=== PATIENT | male | born 1955 | race Caucasian/White ===

== ENCOUNTER 2020-07-31 12:44 | Inpatient (IN) ==
--- NOTE | 2020-07-13 15:35 | PAT Medication Instructions ---
Medication Instructions Date of Service July 13, 2020 Home Medications ibuprofen 800 mg PO Q6H PRN Cruz Multivitamin For Men 1 tab PO QPM ASK your surgeon for instructions ibuprofen 800 mg PO Q6H PRN Take evening before surgery Cruz Multivitamin For Men 1 tab PO QPM Other Notes If you have any questions please call us at [phone] or [phone] or [phone] or [phone]
--- NOTE | 2020-07-16 14:29 | Anesthesiology Consultation ---
Date of Service July 16, 2020 Assessment & Plan (1) Encounter for pre-operative examination: COVID screening: Per assessment on 07/16: Travel screen negative, no known COVID- 19 positive contacts or current COVID-19 related symptoms. Surgeon arranging preop COVID testing (scheduled 07/24; [facility]). Awaiting results. Chart Review Chart Review: Acceptable Risk for Surgery and Patient seen in Pre Admission Testing Teaching & Discussion Pre-Anesthesia Teaching/Discussion Notes: Instructed NPO after midnight before surgery,except medications with 15 cc of water. Medication instructions provided according to the PAT guidelines. History Surgery Operation Date: 07/31/20 10:25 Proposed Procedures p L2-S1 Decompression Fusion *Spinal Cord Monitoring* - Juan Jose Huerta DO Height/Weight Height: 5 ft 11 in Weight: 88.2 kg Allergies Allergy/AdvReac Type Severity Reaction Status Date / Time No Known Allergies Allergy Verified 07/09/20 13:15 Medications Home Medications Medication Instructions Recorded Confirmed Last Taken ibuprofen 800 mg PO Q6H PRN 07/09/20 07/09/20 Unknown [id number] 1 tab PO QPM 07/09/20 07/09/20 Unknown [Cruz Multivitamin For Men] Past Medical History Medical History Chronic back pain + B/L LE radiculopathy GERD (gastroesophageal reflux disease) occasional Exercise / Class Metabolic Activity II 4-5 Yardwork/Stairs/Walk up hill (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 No witnessed apnea events. Patient denies chest pain, shortness of breath, dyspnea on exertion, fever, chills, cough, wheezing, palpitations. Physical Exam Vital Signs VITALS BP 162/92 (pt anxious, he will monitor at home and let PCP know if persistently elevated) P 67 TEMP 98.4 SP02 98%RA RESP 16 PHYSICAL Full cervical extension range of motion. Full TMJ range of motion. TMD 3 finger breaths Mallampati Score 3 Dentition: several missing teeth (including upper right side), poor dentition Lungs: clear throughout to auscultation Cardiac: regular rate and rhythm, no murmurs noted Spine: normal Carotid arteries: negative bruit Extremities: no edema Large moustache Testing Laboratory Results 07/16/20 14:47 07/16/20 14:47 PT 10.3 Seconds (9.0-12.0) 07/16/20 14:47 INR 1.0 (0.9-1.1) 07/16/20 14:47 APTT 26.7 Seconds (21.0-31.0) 07/16/20 14:47 Urine Color Yellow 07/16/20 14:47 Urine Appearance Clear (Clear) 07/16/20 14:47 Urine pH 7.0 (4.5-7.5) 07/16/20 14:47 Ur Specific [place] 1.010 (1.000-1.030) 07/16/20 14:47 Urine Protein Negative (Negative) 07/16/20 14:47 Urine Glucose (UA) Negative (Negative) 07/16/20 14:47 Urine Ketones Negative (Negative) 07/16/20 14:47 Urine Nitrite Negative (Negative) 07/16/20 14:47 Ur Leukocyte Esterase Negative (Negative) 07/16/20 14:47 Blood Type A Positive 07/16/20 14:47 Antibody Screen NEGATIVE 07/16/20 14:47 Electrocardiogram Date: 07/16/20 Findings: + NSR @ (64) Chest X-Ray Date: 07/16/20 FINDINGS: Cardiac mediastinal and hilar silhouettes are within normal limits. Thoracic aortic tortuosity. Small hiatal hernia. No pneumothorax, pleural effusion, airspace consolidation or overt pulmonary edema. The bones of the chest appear grossly intact. Spondylitic spurring of the spine. IMPRESSION: No acute process.
--- NOTE | 2020-07-16 15:28 | XRay Report ---
XR chest Pre-admission PA/Lat HISTORY: 65 years-old Male pat chronic back pain COMPARISON: None TECHNIQUE: PA and lateral views of the chest FINDINGS: Cardiac mediastinal and hilar silhouettes are within normal limits. Thoracic aortic tortuosity. Small hiatal hernia. No pneumothorax, pleural effusion, airspace consolidation or overt pulmonary edema. T he bones of the chest appear grossly intact. Spondylitic spurring of the spine. IMPRESSION: No acute process. ACT 112: Negative or not required by law. The above report was generated using voice recognition software. It may contain grammatical, syntax o r spelling errors. Electronically signed by: Preet Tellez M.D. 07/16/2020 3:27 PM
[2020-07-16 15:49] LABS: Basophils # (auto) 0.03 K/uL (0-0.2); Basophils % (auto) 0.5 %; Eosinophils # (auto) 0.07 K/uL (0-0.5); Eosinophils % (auto) 1.2 %; Hemoglobin 14.1 g/dL (14.0-18.0); Lymphocytes # (auto) 1.43 K/uL (1.2-3.4); Lymphocytes % (auto) 24.7 %; Mean Corpuscular Hemoglobin 32.2 pg (25-34); Mean Corpuscular Hgb Conc 35.3 g/dL (32-36); Mean Corpuscular Volume 91.3 fL (80-100); Mean Platelet Volume 9.7 fL (7.4-10.4); Monocytes # (auto) 0.67 K/uL (0.11-0.59); Monocytes % (auto) 11.6 %; Platelet Count 262 K/uL (130-400); RDW Coefficient of Variation 13.2 % (11.5-14.5); RDW Standard Deviation 44.1 fL (36.4-46.3); Red Blood Count 4.38 M/uL (4.7-6.1)
[2020-07-16 15:53] LABS: Appearance Urine Clear (Clear); Bilirubin Urine Negative (Negative); Blood Urine Negative (Negative); Color Urine Yellow; Glucose Urine UA Negative (Negative); Ketones Urine Negative (Negative); Leukocyte Esterase Urine Negative (Negative); Nitrite Urine Negative (Negative); Protein Urine Negative (Negative); Urobilinogen Urine Negative (Negative)
[2020-07-16 16:02] LABS: Partial Thromboplastin Time 26.7 Seconds (21.0-31.0); Prothrombin Time 10.3 Seconds (9.0-12.0)
[2020-07-16 16:13] LABS: BUN Creatinine Ratio 17.7 (10-20); Calcium 8.4 mg/dl (8.5-10.1); Creatinine Clr Calc Pharmacy 94.4 ml/min; Est GFR (African American) 106.8; Est GFR (Non-African American) 92.1; Potassium 3.9 mmol/L (3.5-5.1)
--- NOTE | 2020-07-17 06:49 | Electrocardiogram Report ---
Test Reason : Blood Pressure : / mmHG Vent. Rate : 064 BPM Atrial Rate : 064 BPM P-R Int : 188 ms QRS Dur : 090 ms QT Int : 410 ms P-R-T Axes : 072 063 063 degrees QTc Int : 422 ms Normal sinus rhythm Normal ECG No previous ECGs available Confirmed by Isaac Castrejon ([id number]) on 07/17/2020 6:49:19 AM Referred By: Juan Jose Huerta Confirmed By:Isaac Castrejon
[~2020-07-31 12:44] MED LIST: ACETAMINOPHEN 500 MG TAB PO SCH; CeleBREX 200 MG CAP PO SCH; DEXAMETHASONE SOD INJ 4 MG/ML VIAL ONE; GABAPENTIN 300 MG CAP PO SCH; GLYCOPYRROLATE 0.2 MG/ML VIAL ONE; LIDOCAINE 2% 2 ML VIAL/AMP(20MG/ML) INFIL ONE; LR 15ML/HR IV SCH; MIDAZOLAM HCL 1 MG/ML 2ML VIAL ONE; NEOSTIGMINE METHYLSULFATE 1 MG/ML 10ML VIAL ONE; ONDANSETRON INJ 2 MG/ML 2 ML VIAL ONE; PROPOFOL IV EMULSION 10 MG/ML 20 ML VIAL IV ONE; ceFAZolin 2000MG 2,000 MG/15 ML SYR IV SCH; fentaNYL citrate 100 MCG/2 ML VIAL ONE
[2020-07-31] MEDS ORDERED: BUPIVACAINE/EPINEPHRINE 0.5% MPF 1:200,000 30 ML VIAL ONE ×2 (13:01→14:37)
--- NOTE | 2020-07-31 14:49 | History & Physical Bridge Note ---
Date of Service July 31, 2020 History & Physical Bridge Note I have examined the patient, reviewed the History & Physical and in the interval since the performance of the History & Physical I have noted the following changes of clinical significance: no changes noted L2-S1 decompression fusion
[2020-07-31] MEDS ORDERED: ONDANSETRON INJ 2 MG/ML 2 ML VIAL IV PRN ×2 (14:59→19:47)
[2020-07-31] MEDS ORDERED: PROMETHAZINE HCL 6.25 MG in SODIUM CHLORIDE 0.9% 50 ML IV PRN (14:59)
[2020-07-31] MEDS ORDERED: HYDROmorphone INJ 2 MG/ML SYR/VIAL IV PRN (14:59)
[2020-07-31] MEDS ORDERED: ATROPINE SULFATE 0.1 MG/ML 10ML SYR IV PRN (14:59)
[2020-07-31] MEDS ORDERED: ePHEDrine sulfate 50 MG/ML AMP IV PRN (14:59)
[2020-07-31] MEDS ORDERED: ROCURONIUM BROMIDE 10 MG/ML 5 ML VIAL IV ONE ×3 (15:47→15:55)
[2020-07-31] MEDS ORDERED: ePHEDrine sulfate 50 MG/ML SYR ONE (16:13)
[2020-07-31] MEDS ORDERED: PHENYLEPHRINE 100MCG/ML 5ML SYR ONE (16:13)
[2020-07-31] MEDS ORDERED: ALBUMIN HUMAN 5% 12.5 GM/250 ML VIAL IV ONE (16:14)
[2020-07-31] MEDS ORDERED: PHENYLEPHRINE HCL 10 MG/ML VIAL ONE (16:45)
[2020-07-31] MEDS ORDERED: FLOSEAL HEMOSTATIC MATRIX 10ML TOP ONE (17:28)
--- NOTE | 2020-07-31 18:28 | Operative Report ---
Post Operative Report Pre & Post Diagnosis Operation Date: 07/31/20 14:25 Pre-Op Diagnosis: Spinal Stenosis, Lumbar Region with Neurogenic Claudication L2-S1 Post-Op Diagnosis: Spinal Stenosis, Lumbar Region with Neurogenic Claudication L2-S1 I identified the patient and participated in the time-out.: Yes Procedure Operation Date: 07/31/20 14:25 Actual Procedures #1 lumbar decompression with bilateral medial facetectomies and foraminotomies L2-3, L3-4, L4-5 and L5-S1. #2 posterior spinal fusion L2-3, L3-4, L4-5 and L5- S1. #3 placement posterior segmental instrumentation L2-S1. #4 interbody fusion L3-4, L4-5 and L5-S1. #5 placement peek cage 12 x 26 mm at L3 413 x 26 mm at L4-5, 12 x 26 mm at L5-S1. #6 placement locally harvested morselized autograft in the posterior gutters. #7 placement infuse collagen sponge, master graft in the posterior gutters and I factor in the interbody space. Surgeon Juan Jose Huerta, DO An/Syq 13 Nav/C2 Operator Chris Cassidy Estimated Blood Loss 350 Findings Consistent with Post-Op Diagnosis Specimens None Indications This is a 65-year-old male who presents with above-mentioned diagnosis after failing since course of nonoperative care is here for the above-mentioned procedure. Description of Procedure Patient was met with identified informed consent obtained. Patient was then taken to the operative suite underwent ablation placed in a prone position Iraj table top Cm frame. All bony prominences well-padded eyes inspected to ensure no external pressure placed upon the. This point the lumbar spine is prepped and draped in a sterile fashion. Sharp dissection with the assistance of Bovie cautery was performed down to and exposing the lamina and transverse processes of L2 L3-L4-L5 and the sacral ala bilaterally. From caudal to cephalad fashion complete laminectomy of L5 L4 L3 and partial laminectomy of L2 was performed including bilateral medial facetectomies and foraminotomies addressing severe spinal stenosis. Pedicle screws were then placed in L to L3-L4-L5 and S1 levels bilaterally with assistance of fluoroscopy and the properly sized brie placed. By way of a transforaminal portion right complete discectomy of L5-S1 was performed endplates curetted to subcortical bleeding bone and a 12 x 26 mm peek cage filled with I factor tapped in position. Then proceeded L4-L5 and again by way of transforaminal portion right complete discectomy performed endplates curetted to subcortically bone and a 13 x 26 mm peek cage filled with I factor tapped in position. Then proceeded to L3-L4 and again by way of a transforaminal approach on right complete discectomy was performed endplates curetted to subcortical bleeding bone and a 12 x 26 mm peek cage filled with I factor tapped in position. The rods were then locked in final position bilaterally. The transverse processes of L2 L3-L4-L5 and sacral ala burred to subcortical bleeding bone. Infuse collagen sponge mass graft local autograft was placed in the posterior lateral gutters. 15 round SAMIR drain inserted. The incision was then closed with 1 Vicryl the fascia 2-0 Vicryl subcutaneously and 4 Monocryl for final skin closure. Steri-Strip sterile dressings placed. Patient will continue to PACU stable condition. Please note spinal cord monitoring was utilized at the procedure no changes noted. Lastly Chris cervantes was present at the entire surgery involved in patient positioning complex portions of the surgery and final skin closure. I attest to the content of the Intraoperative Record and any orders documented therein. Any exceptions are noted below.
[2020-07-31] MEDS: fentaNYL citrate 100 MCG/2 ML VIAL IV PRN ×2 (19:08→19:13)
--- NOTE | 2020-07-31 19:25 | Fluoroscopy Report ---
FL lumbar spine 2-3V HISTORY: 65 years-old Male L2_S1 DECOMPRESIOM COMPARISON: None TECHNIQUE: 3 spot fluoroscopic images of the lumbar spine were obtained utilizing 43.2 seconds fluoro scopy time FINDINGS: Posterior interbody brie and screw fusion hardware is noted at what appears to be the L2-S1 levels. Di scectomy changes at L3-L4, L4-L5 and L5-S1. The visualized hardware appears intact. No opaque foreign body identified. Expected postsurgical soft tissue swelling with deep tissue air. IMPRESSION: Fluoroscopic assistance as above. ACT 112: Negative or not required by law. The above report was generated using voice recognition software. It may contain grammatical, syntax o r spelling errors. Electronically signed by: Preet Tellez M.D. 07/31/2020 7:23 PM
--- NOTE | 2020-07-31 19:37 | Anesthesiology Progress Note ---
Date of Service July 31, 2020 Anesthesia Post Procedure Vital Signs Vital Signs: Temp Pulse Pulse Resp BP BP Pulse Ox 07/31/20 19:30 36.9 C 75 20 116/66 98 07/31/20 19:20 69 15 111/67 97 07/31/20 19:10 69 21 95/56 L 97 07/31/20 19:00 69 12 106/61 99 07/31/20 18:53 36.2 C L 77 14 122/76 99 07/31/20 12:59 36.8 C 69 18 178/112 H 98 Pain Intensity Lower Back: Pain Intensity: 4 Transfer of Care Handoff Completed per policy Notes Mental Status: alert / awake / arousable Patient Amnestic to Procedure: Yes Nausea / Vomiting: adequately controlled Pain: adequately controlled Airway Patency, RR, SpO2: stable & adequate BP & HR: stable & adequate Hydration State: stable & adequate Anesthetic Complications: no major complications apparent
[2020-07-31] MEDS ORDERED: PROMETHAZINE HCL 12.5 MG in SODIUM CHLORIDE 0.9% 50 ML IV PRN (19:47)
[2020-07-31] MEDS ORDERED: DO NOT ADMINISTER PNEUMOCOCCAL VACCINE PRN (19:47)
[2020-07-31] MEDS ORDERED: MAGNESIUM HYDROXIDE SUSP 30 ML UDC PO PRN (19:47)
[2020-07-31] MEDS ORDERED: hydrOXYzine HCl 25 MG TAB PO PRN (19:47)
[2020-07-31] MEDS ORDERED: ACETAMINOPHEN 500 MG TAB PO PRN (19:47)
[2020-07-31] MEDS ORDERED: NALOXONE HCL 0.4 MG/1 ML VIAL/CARP IV PRN (19:47)
[2020-07-31] MEDS ORDERED: LORazepam 0.5 MG/1 ML VIAL IV PRN (19:47)
[2020-07-31] MEDS ORDERED: DO NOT ADMINISTER FLU VACCINE PRN (19:47)
[2020-07-31] MEDS ORDERED: SOD PHOSPHATE/SOD BIPHOSPHATE ENEMA 132 ML BTL PR PRN (19:47)
[2020-07-31] MEDS ORDERED: LORazepam 0.5 MG TAB PO PRN (19:47)
[2020-07-31] MEDS ORDERED: FAMOTIDINE 20 MG TAB PO PRN (19:47)
[2020-07-31] MEDS ORDERED: METOCLOPRAMIDE HCL INJ 5 MG/ML 2 ML VIAL IV PRN (19:47)
[2020-07-31] MEDS ORDERED: ALUMINUM/MAGNESIUM SUSP 30 ML UDC PO PRN (19:47)
[2020-07-31] MEDS ORDERED: bisacodyL 10 MG SUPP PR PRN (19:47)
[2020-07-31] MEDS ORDERED: ONDANSETRON 4 MG OD TAB PO PRN (19:47)
[2020-07-31] MEDS ORDERED: HYDROmorphone INJ 0.5 MG/0.5 ML SYR IV PRN (19:47)
[2020-07-31] MEDS ORDERED: diphenhydrAMINE Capsule 25 MG CAP PO PRN (19:47)
[2020-07-31] MEDS ORDERED: ACETAMINOPHEN 1,000 MG/100 ML VIAL IV PRN (19:47)
[2020-07-31] MEDS: LACTATED RINGER'S 1,000 ML IV SCH (19:56)
[2020-07-31] MEDS: DOCUSATE SODIUM/SENNA 50/8.6MG TAB PO SCH (21:10)
[2020-07-31] MEDS: oxyCODONE HCL IR 5 MG TAB (IMMEDIATE RELEASE) PO PRN (21:10)
[2020-07-31] MEDS: KETOROLAC TROMETHAMINE 15 MG/ML VIAL IV SCH (21:11)
[2020-07-31] MEDS: HYDROmorphone INJ 1 MG/ML SYRINGE IV PRN (22:42)
[2020-08-01] MEDS ORDERED: hydrALAZINE HCL 20 MG/ML VIAL IV PRN (00:38)
[2020-08-01] MEDS: oxyCODONE HCL IR 5 MG TAB (IMMEDIATE RELEASE) PO PRN ×6 (01:16→22:36)
--- NOTE | 2020-08-01 04:00 | Consultation Report ---
DATE OF CONSULTATION: 08/01/2020 CHIEF COMPLAINT: Status post back surgery. HISTORY OF PRESENT ILLNESS: This is a 65-year-old male with past medical history significant for borderline hypertension. He is status post back surgery. He tolerated the procedure okay. The patient denies any chest pain, no shortness of breath, no cough, no headache, no blurred vision, no nausea, not feeling hot or cold, no abdominal pain, eating and drinking okay. Pain is under control currently. Resting comfortably and hemodynamically stable. ALLERGIES: No known drug allergies. PAST MEDICAL HISTORY: As mentioned above. PAST SURGICAL HISTORY: Had inguinal hernia repair. MEDICATIONS: Ibuprofen as needed. FAMILY HISTORY: Significant for mother had stroke, paternal grandmother had stroke, father had asthma. SOCIAL HISTORY: Quit smoking 25 years ago, smoked for 20 years. Alcohol rarely. No drug use. REVIEW OF SYSTEMS: As per HPI. Rest of review of systems negative. PHYSICAL EXAMINATION: GENERAL: The patient is of moderate build, not in acute distress. VITAL SIGNS: Temperature 36.5, pulse 68, respiratory rate 20, blood pressure 151/66, oxygen 96% on room air. HEENT: Head is atraumatic. No facial droop seen. NECK: No JVD, no neck masses seen. CARDIOVASCULAR: S1, S2 heard, regular rate and rhythm, no murmur, no gallop. RESPIRATORY SYSTEM: Normal AP diameter. No accessory muscle use. No wheezing, no crackles. ABDOMEN: Soft, bowel sounds present, nontender. No distention. CENTRAL NERVOUS SYSTEM: Alert and oriented. Speech is clear, no facial droop. Moves extremities. EXTREMITIES: No edema, no erythema. MUSCULOSKELETAL: Status post back surgery, dressing and drain intact. LABORATORY DATA: Unavailable at this time. ASSESSMENT AND PLAN: This is a 65-year-old male status post back surgery. 1. Status post back surgery: Further management as per orthopedics. 2. Borderline hypertension: Not on any medication. Will monitor. Will place on IV hydralazine p.r.n. 3. Deep venous thrombosis prophylaxis and disposition as per orthopedics. MTDD
[2020-08-01] MEDS: KETOROLAC TROMETHAMINE 15 MG/ML VIAL IV SCH ×3 (04:04→15:18)
[2020-08-01] MEDS: POLYETHYLENE (MIRALAX) 17 GM PACK PO SCH ×4 (05:22→22:37)
[2020-08-01] MEDS: LACTATED RINGER'S 1,000 ML IV SCH (05:30)
[2020-08-01 06:11] LABS: Hematocrit (blood only) 31.1 % (42-52); Hemoglobin 10.6 g/dL (14.0-18.0); Immature Granulocytes # (auto) 0.02 K/uL (0.00-0.02); Immature Granulocytes % (auto) 0.1 %; Lymphocytes # (auto) 0.96 K/uL (1.2-3.4); Lymphocytes % (auto) 7.1 %; Mean Corpuscular Hemoglobin 31.7 pg (25-34); Mean Corpuscular Hgb Conc 34.1 g/dL (32-36); Mean Corpuscular Volume 93.1 fL (80-100); Mean Platelet Volume 8.9 fL (7.4-10.4); Monocytes # (auto) 1.12 K/uL (0.11-0.59); Monocytes % (auto) 8.3 %; Neutrophils # (auto) 11.37 K/uL (1.4-6.5); Neutrophils % (auto) 84.5 %; Platelet Count 221 K/uL (130-400); RDW Coefficient of Variation 13.4 % (11.5-14.5); RDW Standard Deviation 45.7 fL (36.4-46.3); Red Blood Count 3.34 M/uL (4.7-6.1); White Blood Count 13.47 K/uL (4.8-10.8)
[2020-08-01 06:35] LABS: BUN Creatinine Ratio 25.7 (10-20); Calcium 7.9 mg/dl (8.5-10.1); Creatinine Clr Calc Pharmacy 85.6 ml/min; Est GFR (African American) 103.3; Est GFR (Non-African American) 89.1; Potassium 4.8 mmol/L (3.5-5.1)
[2020-08-01] MEDS: ceFAZolin 2000MG 2,000 MG/15 ML SYR IV SCH ×2 (08:05)
--- NOTE | 2020-08-01 08:11 | Orthopedic Progress Note ---
Date of Service August 01, 2020 Assessment & Plan (1) Chronic back pain: Patient will start physical therapy today. Continue with pain control. DVT prophylaxis is in the form of teds and SCDs. Continue with aggressive bowel regimen. Anticipate discharge home early next week. Admission and Anticipated Discharge Date Admission Date: July 31, 2020 Supervising Physician Co-Signing Physician Notes Dr. Juan Jose Huerta Subjective Patient is postoperative day 1 L2-S1 decompression fusion per Dr. Huerta. He h ad an uneventful evening. Back pain controlled. Denies radicular leg pain. H&H is morning are 10.6 and 31.1 respectively. SAMIR output is 210 cc last shift. Review of Systems Review of Systems: All systems reviewed & are unremarkable except as noted in HPI & below Physical Exam Physical Exam: Alert and oriented x3 No acute distress Lumbar dressing is clean dry and intact Calves are soft and nontender bilaterally. Motor testing is 5/5 bilaterally. Constitutional: WD/WN, vitals as above Eyes: normal visual mao by confrontation ENMT: external ear and nose normal, oropharynx normal Neck: normal visual inspection Respiratory: normal respiratory effort Cardiovascular: Extremities: normal capillary refill Chest (Breasts): Chest: normal inspection of chest Gastrointestinal (Abdomen): Inspection/Auscultation: abdomen normal to inspection Musculoskeletal: Extremities: extremities normal to inspection and strength 5/5 throughout Skin: no rashes, warm and dry Neurologic: normal touch/pain/proprioception and moves all extremities Psychiatric: A+Ox3, euthymic affect Results & Data ([facility]) Vital Signs (Past 12 Hours) Vital Signs Temp Pulse Resp BP BP Pulse Ox 08/01/20 07:04 37 C 73 16 101/58 L 91 08/01/20 04:05 36.8 C 84 16 120/56 L 94 07/31/20 22:40 36.5 C 68 20 151/66 H 96 07/31/20 21:40 36.5 C 72 20 121/68 96 07/31/20 21:13 96 07/31/20 20:40 36.5 C 76 20 149/71 H 94 07/31/20 20:11 36.4 C L 77 20 120/80 97
[2020-08-01] MEDS ORDERED: CALCIUM CARBONATE 500 MG CHEWABLE TAB PO PRN (14:47)
[2020-08-01] MEDS ORDERED: ALUMINUM/MAGNESIUM/SIMETH (MAALOX MAX) 30 ML UDC PO PRN (14:47)
--- NOTE | 2020-08-01 14:50 | Communication Note ---
Date of Service: August 01, 2020 pt complains of acid reflux -has been a chronic issues worse after breakfast , having coughing spell , asking for tums prn tums ordered added PPI pt will need follow up with family physician for EGD in future for chronic acid reflux -eval gastritis /esophagitis Trvea Arboleda MD
[2020-08-01] MEDS: DOCUSATE SODIUM/SENNA 50/8.6MG TAB PO SCH (21:08)
[2020-08-02] MEDS: oxyCODONE HCL IR 5 MG TAB (IMMEDIATE RELEASE) PO PRN (02:27)
[2020-08-02] MEDS: POLYETHYLENE (MIRALAX) 17 GM PACK PO SCH ×2 (05:43→12:20)
[2020-08-02] MEDS: traMADol HCL 50 MG TABLET PO PRN ×4 (06:11→21:33)
[2020-08-02] MEDS: HYDROmorphone INJ 1 MG/ML SYRINGE IV PRN (07:55)
--- NOTE | 2020-08-02 08:06 | Orthopedic Progress Note ---
Date of Service August 02, 2020 Assessment & Plan (1) Chronic back pain: Patient is postoperative day 2 L2-S1 decompression fusion by Dr. Huerta. Struggling with pain control. We will add Decadron this morning. Toradol has been discontinued. He is also received IV Dilaudid this morning. We will continue with physical therapy. Continue with aggressive bowel regimen. DVT prophylaxis is in the form of teds and SCDs. Maintain SAMIR drain. Hopefully achieve better pain control today and discharge home within the next 24 to 48 hours. Admission and Anticipated Discharge Date Admission Date: July 31, 2020 Supervising Physician Co-Signing Physician Notes Dr. Juan Jose Huerta Subjective Patient is having a difficult time with pain control currently. He has pain in lower back rating along the right hip buttock and thigh. He was given Toradol yesterday as well as oral oxycodone. SAMIR drain is intact and functioning. Output last shift was 230 cc. Yesterday in physical therapy he is ambling roughly 80 feet. He reports he is also walking the hallways. Review of Systems Review of Systems: All systems reviewed & are unremarkable except as noted in HPI & below Physical Exam Physical Exam: Lying in bed. Lumbar dressing is clean dry and intact. Moderately uncomfortable Strength is intact bilateral lower extremities Calves are soft and nontender bilaterally. Constitutional: WD/WN, vitals as above Eyes: normal visual mao by confrontation ENMT: external ear and nose normal, oropharynx normal Neck: normal visual inspection Respiratory: normal respiratory effort Cardiovascular: Extremities: normal capillary refill Chest (Breasts): Chest: normal inspection of chest Gastrointestinal (Abdomen): Inspection/Auscultation: abdomen normal to inspection Musculoskeletal: no cyanosis or clubbing, extremities motor strength 5/5 Extremities: extremities normal to inspection and strength 5/5 throughout Skin: no rashes, warm and dry Neurologic: normal touch/pain/proprioception and moves all extremities Psychiatric: A+Ox3, euthymic affect Results & Data ([facility]) Vital Signs (Past 12 Hours) Vital Signs Temp Pulse Resp BP Pulse Ox 08/02/20 07:35 36.7 C 71 16 118/67 94 08/01/20 22:56 36.7 C 82 16 158/66 H 95
[2020-08-02] MEDS ORDERED: dexAMETHasone 8 MG in SYRINGE 0 ML IV ONE (08:30)
--- NOTE | 2020-08-02 14:18 | Hospitalist Progress Note ---
Date of Service August 02, 2020 Assessment & Plan (1) Chronic back pain: Chronic back pain with radiculopathy: Status post lumbar decompression surgery by Dr. Huerta Still has moderate amount of serosanguineous drainage on SAMIR drain, Will order to check H&H in a.m. Recovering well Participating in physical therapy, able to ambulate in hallway independently Continue management as per orthopedics History of GERD: Reports of chronic issues with acid reflux, causes him to chronic nonproductive coughing at night Uses Tums as needed Patient is started on a PPI, Protonix 40 mg daily will be continued for 6 weeks, prescription sent to patient's pharmacy Information was given for acid reflux, symptomatic management Patient will need to follow-up with his family physician, and scheduled for EGD/upper endoscopy for evaluation of esophagitis/gastritis DVT prophylaxis: SCD and teds per spinal orthopedics Disposition: Per primary team Admission and Anticipated Discharge Date Admission Date: July 31, 2020 Subjective Follow-up visit for lumbar decompression surgery. Patient states his back pain is much more improved today, walking on the hallway utilizing walker: Moderate amount of serosanguineous collection noted in the SAMIR drain from surgical site His GERD symptoms has improved after starting on PPI No cough, no fever or chills, denies of any chest pain or shortness of breath Comfortable with current regimen of pain medication Had bowel movement yesterday No nausea vomiting or abdominal discomfort Review of Systems Review of Systems: All systems reviewed & are unremarkable except as noted in Subjective Physical Exam Physical Exam: Physical exam: General: No acute distress, alert awake oriented x3 HEENT: PERRLA, EOMI, Heart: Regular S1-S2, no carotid bruit, no JVD, no lower extremity edema Lungs: Clear to auscultate, no wheeze or rales Abdomen: Soft nontender, no organomegaly Extremity: Status post spinal decompression surgery, SAMIR drain present with moderate amount of serosanguineous collection Neuro: No focal neurological deficit normal speech, normal visual field, Motor strength : normal both upper and lower extremity, sensation intact Psych: Alert awake oriented x3, normal affect Results & Data Results & Data ([facility]) Vital Signs (Past 12 Hours) Vital Signs Temp Pulse Resp BP Pulse Ox 08/02/20 07:35 36.7 C 71 16 118/67 94
[2020-08-02] MEDS: DOCUSATE SODIUM/SENNA 50/8.6MG TAB PO SCH (21:33)
[2020-08-03] MEDS: traMADol HCL 50 MG TABLET PO PRN ×2 (02:04→07:30)
[2020-08-03 06:23] LABS: Hematocrit (blood only) 27.1 % (42-52); Hemoglobin 9.5 g/dL (14.0-18.0)
[2020-08-03] MEDS ORDERED: PANTOprazole 40 MG TAB PO SCH (09:00)
--- NOTE | 2020-08-03 09:19 | Discharge Summary ---
Date of Service August 03, 2020 Principal Diagnosis Lumbar spinal stenosis with neurogenic claudication Discharge Data Allergies Allergy/AdvReac Type Severity Reaction Status Date / Time No Known Allergies Allergy Verified 07/31/20 12:55 Consultations 07/31/20 19:47 Consult Hospitalist Routine Procedures Performed Operation Date: 07/31/20 14:25 Actual Procedures p L2-S1 Decompression Fusion with Spinal Cord Monitoring, Application of Bone Morphogenetic Protein(Not Applicable) - Juan Jose Huerta DO Ordered Studies 07/31/20 14:25 FL lumbar spine 2-3V Routine Hospital Course (1) Chronic back pain: Patient with multilevel lumbar decompression fusion trial as well as leg orthopedic for postop labor postop day 1 is up and ambulating progressed to postop day #2 on postop day #3 he was ambulating well SAMIR drain decreasing probably. Excellent strength testing. Pain well controlled. Subsequent discharge home. Discharge orders instructions from the chart for further review. Total Time Total Time Spent Total Time Spent (In Minutes): 20 minutes Discharge Plan Discharge Items Patient Disposition: Home - Self-Care Reason For Visit: Spinal stenosis, Lumbar Region with Neurogenic Discharge Diagnosis: Lumbar spinal stenosis with neurogenic claudication Activity: As commented below Non-emergency contact: Primary Care Provider Call non-emergency contact if: you have any medication questions Follow-up/Referrals: Breana Walker MD [Primary Care Provider] - Diet: Regular Addtl Attending Provider Instructions: ACTIVITY RECOMMENDATIONS: SELF CARE INSTRUCTIONS AFTER THORACIC/LUMBAR FUSIONS 1. You may walk to your tolerance. It is good exercise for your legs and back. Expect some back and intermittent leg aches and pains. 2. You may perform "counter-top" level activities (make a sandwich, braulio with a project, etc.). 3. No bending or lifting of more than 10 pounds or back twisting of any nature (roll like a log when turning in bed). 4. You may ride in a car for 20-30 minutes at a time. No driving until after your first visit with your doctor. 5. Frequent changes of position and restricting sitting to 30 minutes at a time will help limit the amount of back spasms and stiffness you may experience. 6. You may discontinue the use of ambulatory aids (cane, crutches, etc.) once your strength and confidence allow. 7. You may spinning bath person the shower and let water strike your incision when you arrive home at least once daily. Do not take a tub bath, sit in a hot tub or go into a swimming pool until after your first recheck in the office. SPECIAL CARE INSTRUCTIONS: VERY IMPORTANT TO READ AND REVIEW A. Your surgical incision has been closed with a cosmetic suture under the skin that will dissolve in about 6 weeks. In 14 days, you can use a pair of clean scissors and cut the suture that is left outside of the skin at the ends of your incision. 1. The small skin tapes can be removed 7 days after surgery if they have not fallen off by that point. 2. You may keep the wound open to air as much as possible to promote healing after post-op day number 5 unless told otherwise by your doctor. 3. If you think the wound looks like it is becoming infected (redness or worsening drainage) and/or you are experiencing fever, chill or worsening back pain and muscle spasms, contact the office so that we may evaluate you as soon as possible. B. Complications are uncommon, but please contact us if you have any signs or symptoms of: 1. wound infection (fever higher than 102.5 degrees F, redness, separation of wound, drainage, or increasing pain from the incision) 2. blood clots in legs (pain, swelling, redness and warmth in legs) 3. urinary tract infection (fever higher than 102.5 degrees F, burning upon urination or increased frequency of urination) 4. nerve problems (inability to walk on your toes or heels, numbness, loss of bowel or bladder control) 5. any other symptoms that concern you C. Please call the office at if you have any concerns or questions about your operation or recovery. D. No smoking! Smoking drastically decreases the chance of a solid fusion. E. Do not take any anti-inflammatory medications (Indocin, Advil, Motrin, Aspirin, Naprosyn, etc.) as these may inhibit the chance of a solid fusion. Tylenol is okay to take for pain. MANAGING PAIN AFTER SPINAL SURGERY 1. Narcotic medication is intended for short-term use and will be provided for surgical pain. Surgical pain usually lasts for a period of 4-6 weeks. Narcotic medication includes Percocet, Vicodin, Darvocet, Tylenol #3 or Lortab. 2. Longer-term pain is more appropriately treated with non-narcotic medication such as Tylenol ES. 3. Muscle spasm is not appropriately treated with narcotics. Muscle relaxers such as Soma, Flexeril or Skelaxin can be used along with Tylenol ES. 4. Remember that we all live with some "aches and pains". This is not unusual or uncommon after an injury or as we get older. a. Back pain is expected and may include muscle spasms for 4 to 6 weeks after surgery. The pain should gradually improve. If the pain worsens for no apparent reason, please contact the office. b. Intermittent leg pain may also be experienced and should not be concerned about unless it worsens for no apparent reason. If so, please contact the office. 5. We will provide appropriate medication within the normal guidelines of their prescribed use. We will also be very cautious and aware of potential abuse and extended duration of patients' medication needs. a. Pain medications are for your comfort and to assist with sleep and rest so that the tissue can heal. They are not provided in order to return to normal activity and should not be used through the day. To do so or worsening pain at night can result from ongoing tissue damage and development of tolerance to the prescribed medicine. 6. Please allow 2-3 days to process refills. Prescriptions will not be mailed but must be picked up at the office. FOLLOW UP VISIT: Keep your scheduled follow-up appointment. Any questions, please call the office at . [employer] Provider Instructions: For your chronic acid reflux symptoms, your discharged on Protonix 40 mg take 1 tablet before breakfast daily for 6 weeks Always take pain medication/ibuprofen with full stomach/with meals Please follow-up with your family physician, -you may need EGD/upper endoscopy to assess inflammatory changes in your lower food pipe/esophagus and stomach: Common complications with chronic acid reflux disease Pending Studies at Discharge: No Stand-Alone Forms: [employer], Smoking Cessation Medications and DC Order Prescriptions: New pantoprazole [Protonix] 40 mg tablet,delayed release (DR/EC) 40 mg PO DAILY 42 Days Qty: 42 RF: 0 tramadol 50 mg tablet 50 mg PO Q6H PRN (Reason: pain, moderate) Qty: 30 RF: 0 oxycodone 5 mg tablet 5 mg PO Q6H PRN (Reason: pain, severe) Qty: 30 RF: 0 Continued Cruz Multivitamin For Men 200-175-250 mcg Tablet 1 tab PO QPM RF: 0 acetaminophen [Tylenol Extra Strength] 500 mg Tablet 500 mg PO Q6H PRN (Reason: pain) RF: 0 Discontinued ibuprofen 200 mg Tablet 800 mg PO Q6H PRN (Reason: Pain) RF: 0 Discharge Orders: Discharge Order (Routine); Ordered 08/03/20 Ordered By: Juan Jose Paredes/Other Patient Handouts: Lifestyle Changes for Controlling GERD, Medicines for GERD, Medicines for Acid Reflux, How Acid Reflux Affects Your Throat, GERD Gastroesophageal Reflux ..., Gastroesophageal Reflux Disease ... Admission Data Admit Date/Time: 07/31/20 18:46 Attending Provider: Juan Jose Huerta Admit Provider: Juan Jose Huerta Primary Care Provider: Breana Walker Other Providers: Treva Arboleda Other Interventions: Discharge Summary Assessment (RN) Last Done: 08/03/20 08:00
== END 2020-08-03 12:00 | disposition home or self-care (01) | DRG 455 ==
LOC: ASU 12:44 → 3E 18:46